=== PATIENT | female | born 1970 | race American Indian/Alaskan Native ===

== ENCOUNTER 2016-08-16 11:17 | Outpatient (CLI) | payer OTHER ==
--- NOTE | 2016-08-16 12:41 | XRay Report ---
AP AND LATERAL LUMBOSACRAL SPINE: History: Back pain. The vertebral bodies are well mineralized and normal in alignment and vertebral height with well preserved interspace distances. The visualized portions of the posterior elements are normal. IMPRESSION: Normal study.
--- NOTE | 2016-08-16 12:41 | XRay Report ---
SACROILIAC JOINTS: History: Sacroiliac pain, back pain. PA and both obliques of the SI joints demonstrate a normal joint space with well defined cortical margins. The bones are normally mineralized with no destructive changes or fractures. IMPRESSION: Normal study.
== END 2016-08-16 11:18 | disposition home or self-care (01) ==
LOC: SPVIMAG 11:17
DX: M53.3 Sacrococcygeal disorders, not elsewhere classified (principal); M54.9 Dorsalgia, unspecified
CPT/HCPCS: 72100; 72202

== ENCOUNTER 2017-04-22 12:23 | Outpatient (CLI) | payer OTHER ==
--- NOTE | 2017-04-22 15:58 | Cat Scan Report ---
CT ABDOMEN AND PELVIS WITHOUT AND WITH CONTRAST: 04/22/17 12:23:00 CLINICAL: Abdominal pain. COMPARISON: None TECHNIQUE: Volumetric acquisition and 1.25 millimeter scan reconstructions without contrast and after the uneventful intravenous injection of 100 cc Omnipaque 300. Consent was obtained prior to the administration of contrast. Oral contrast was also given. FINDINGS: Abdomen: Clear lung bases. Normal liver size, contour and overall density. A 7 mm left lobe lateral segment cyst. No liver mass. The gallbladder and bile ducts are normal. Normal stomach, duodenum, pancreas and spleen. Normal kidneys and adrenal glands. The renal collecting systems the ureters are nondilated. No renal mass, cyst or calculus. Normal aorta and IVC. The small bowel is normal. Normal ascending, transverse and descending colon with a large volume of stool in the left colon. The appendix is normal. No mass, lymphadenopathy or ascites. Pelvis: A mildly enlarged fibroid uterus measures 8.1 cm craniocaudal dimension by 5.1 cm AP dimension by 6.1 cm transverse dimension. A dominant right fundal intramural fibroid measures 4.1 cm. A left fundal subserosal fibroid measures 2.7 x 2.2 cm. The uterine cavity is nondistended. Normal ovaries. No adnexal mass or free fluid. The sigmoid colon and rectum are normal. Bone windows demonstrate no suspicious bone lesion. IMPRESSION:1. A 7 mm left hepatic cyst and otherwise negative abdomen. 2. A mildly enlarged fibroid uterus with a dominant 4.1 cm fundal fibroid and a 2.7 cm left fundal subserosal fibroid. Normal ovaries.
== END 2017-04-22 12:24 | disposition home or self-care (01) ==
LOC: SPVIMAG 12:23
DX: D25.2 Subserosal leiomyoma of uterus (principal); D25.1 Intramural leiomyoma of uterus; K76.89 Other specified diseases of liver; N85.2 Hypertrophy of uterus
CPT/HCPCS: 74178; Q9967

== ENCOUNTER 2018-05-12 09:15 | Outpatient (CLI) | payer OTHER ==
--- NOTE | 2018-05-12 10:49 | Mammography Report ---
LEFT DIGITAL DIAGNOSTIC MAMMOGRAM and LEFT BREAST ULTRASOUND: 05/12/18 09:15:00 CLINICAL: Recalled for asymmetry. COMPARISON:04/15/18 screening FINDINGS: Additional mammographic views were performed and are negative. Ultrasound of the left breast demonstrated no mass, cyst or shadowing. A benign fat lobule versus a benign intramammary lymph node at 4 o'clock 6.5 cm from the nipple measures 6 x 3 x 5 mm. IMPRESSION: Negative mammogram and negative left breast ultrasound BI-RADS CATEGORY: 2 - - Benign RECOMMENDATION: Routine mammographic screening in one year. ACR BI-RADS MAMMOGRAPHIC CODES: 0 = Needs additional imaging evaluation; 1 = Negative; 2 = Benign; 3 = Probably benign; 4 = Suspicious; 5 = Malignant; 6 = Known biopsy-proven malignancy COMMENT: 1. Dense breast tissue, i.e., adenosis, fibrocystic changes, etc., may obscure an underlying neoplasm. 2. Approximately 10% of cancers are not detected with mammography. 3. A negative mammography report should not delay biopsy if a clinically suspicious mass is present. COMMENT: Patient follow-up letters are generated via our [employer] ([employer]) application.
== END 2018-05-12 09:16 | disposition home or self-care (01) ==
LOC: SPVWC 09:15
DX: N64.89 Other specified disorders of breast (principal)

== ENCOUNTER 2019-04-30 13:51 | Outpatient (CLI) | payer OTHER ==
--- NOTE | 2019-04-30 14:49 | XRay Report ---
BILATERAL HANDS INDICATION: BILATERAL HAND PAIN, more so at the thumbs. COMPARISON: None. FINDINGS: AP, lateral and oblique views of both hands demonstrate intact bones, joints and soft tiss ues. IMPRESSION: No acute osseous or soft tissue abnormality. No significant DJD. Signer Name: Gaye Brock Signed: 04/30/2019 2:44 PM Workstation Name: [id number]
== END 2019-04-30 13:52 | disposition home or self-care (01) ==
LOC: SPVIMAG 13:51
PROVIDERS: ATTEND Urology
DX: M79.641 Pain in right hand (principal); M79.642 Pain in left hand

== ENCOUNTER 2019-08-09 10:21 | Outpatient (CLI) | payer OTHER ==
--- NOTE | 2019-08-09 14:44 | Mammography Report ---
DIGITAL SCREENING MAMMOGRAM WITH CAD, 08/09/2019 INDICATION: Routine screening mammography. TECHNIQUE: Digital bilateral 2D mammography was obtained in the craniocaudal and mediolateral obliq ue projections. This examination was interpreted with the benefit of Computer-Aided Detection analysi s. COMPARISON: 04/15/2018 and 06/19/2016 FINDINGS: Breast Density: The breasts are heterogeneously dense, which may obscure small masses. There is no evidence of dominant mass, suspicious calcifications or architectural distortion in eithe r breast. IMPRESSION: No mammographic evidence of malignancy. Follow up recommendation: Routine yearly BI-RADS Category 1: Negative. A "normal" or negative report should not discourage follow up or biopsy of a clinically significant f inding. A written summary of these findings will be mailed to the patient. The patient will be entered into a mammography reporting system which will generate a reminder letter for the patient's next appointmen t at the appropriate interval. The [employer] recommends yearly mammograms starting at age 40 and continuing as l krystin as a woman is in good health. Breast MRI is recommended for women with an approximate 20-25% or greater lifetime risk of breast cancer, including women with a strong family history of breast or ova eliud cancer or who have been treated for Hodgkin's disease. Signer Name: Yosi Soares MD Signed: 08/09/2019 2:40 PM Workstation Name: [id number]
== END 2019-08-09 10:22 | disposition home or self-care (01) ==
LOC: SPVWC 10:21
PROVIDERS: ATTEND Urology
DX: Z12.31 Encounter for screening mammogram for malignant neoplasm of breast (principal)
CPT/HCPCS: 77067

== ENCOUNTER 2022-01-16 14:13 | Outpatient (CLI) | payer OTHER | END 2022-01-16 14:14 | disposition home or self-care (01) | LOC: SPVWC 14:13 | PROVIDERS: ATTEND Family Medicine | DX: Z12.31 Encounter for screening mammogram for malignant neoplasm of breast (principal) | CPT/HCPCS: 77067 ==